=== PATIENT | male | born 1980 | race Caucasian/White ===

== ENCOUNTER 2021-10-18 19:43 | Inpatient (IN) ==
[2021-10-18 20:24] LABS: Basophils # 0.1 K/mcL (0.0-0.2); Basophils % 0.7 %; Eosinophils # 0.3 K/mcL (0.0-0.6); Eosinophils % 3.9 %; Hematocrit 44.7 % (37.5-50.1); Hemoglobin 15.3 g/dL (12.9-16.9); Immature Granulocytes % 0.3 % (0-4); Lymphocytes # 1.7 K/mcL (0.6-4.6); Lymphocytes % 22.2 %; Mean Corpuscular HGB Conc 34.2 g/dL (31.6-35.5); Mean Corpuscular Hemoglobin 32.1 pg (28.0-33.3); Mean Corpuscular Volume 93.9 fL (83.0-100.0); Mean Platelet Volume 9.8 fL (9.4-12.4); Monocytes # 0.4 K/mcL (0.0-1.3); Monocytes % 5.3 %; Neutrophils # 5.1 K/mcL (1.6-8.9); Platelet Count 251 K/mcL (140-400); Red Blood Count 4.76 M/mcL (4.19-5.50); Red Cell Distribution Width 12.4 % (11.5-14.5); Segmented Neutrophils % 67.6 %; White Blood Count 7.6 K/mcL (4.3-11.1)
[2021-10-18 20:46] LABS: Acetaminophen < 10 mcg/mL (10-20); BUN/Creatinine Ratio 17 (6-26); Blood Urea Nitrogen 18 mg/dL (6-20); Carbon Dioxide 25 mEq/L (23-29); Chloride 106 mEq/L (98-107); Chol/HDL Ratio 2.9 (0-4.9); Cholesterol 158 mg/dL (< 200); Ethanol < 10 mg/dL (Less than 10); Glucose 163 mg/dL (70-105); HDL Cholesterol 54 mg/dL (40-59); LDL Cholesterol,Calculated 76 mg/dL (< 100); Osmolality,Calculated 291 (280-300); Potassium 4.1 mEq/L (3.5-5.1); Salicylate < 2.5 mg/dL (15.0-30.0); Sodium 138 mEq/L (136-145); Triglycerides 140 mg/dL (< 150)
[2021-10-18 21:18] LABS: Estimated Average Glucose 108 mg/dl; Hemoglobin A1C 5.4 %
[2021-10-18 21:20] LABS: Amphetamine Screen,Urine Negative ng/mL (Cutoff=1000); Barbiturate Screen,Urine Negative ng/mL (Cutoff=200); Benzodiazepines Screen,Urine Negative ng/mL (Cutoff=200); Cannabinoid Screen,Urine Negative ng/mL (Cutoff = 50); Cocaine Screen,Urine Negative ng/mL (Cutoff= 300); Opiate Screen,Urine Negative ng/mL (Cutoff=300); Phencyclidine Screen,Urine Negative ng/mL (Cutoff=25)
[2021-10-18 21:26] LABS: Bacteria,Urine Few per hpf (None-Few); Mucus,Urine Few per lpf (None-Few); RBC,Urine 0-3 per hpf (0-3)
[2021-10-18 21:50] LABS: Bilirubin,Urine Negative (Negative); Blood,Urine Negative (Negative); Clarity,Urine Clear (Clear); Color,Urine Yellow (Yellow); Glucose,Urine (UA) Normal (Normal); Ketones,Urine Trace mg/dL (Negative); Leukocyte Esterase,Urine Moderate (Negative); Nitrite,Urine Negative (Negative); Protein,Urine 30 mg/dL (Neg-Trace); Specific Gravity,Urine > 1.030 (1.010-1.025)
[2021-10-19 01:26] LABS: Influenza A PCR Negative (Negative); Influenza B PCR Negative (Negative); Resp. Syncytial Virus PCR Negative (Negative)
[2021-10-19 01:32] LABS: SARS-CoV-2 by PCR (In House) Negative (Negative)
[2021-10-19] MEDS ORDERED: *HR* LORazepam 2 MG/ML VIAL IM PRN (02:07)
[2021-10-19] MEDS ORDERED: hydrOXYzine pamoate 25 MG CAPSULE PO PRN (02:07)
[2021-10-19] MEDS ORDERED: Acetaminophen 325 MG TABLET PO PRN (02:07)
[2021-10-19] MEDS ORDERED: *HR* LORazepam 1 MG TABLET PO PRN (02:07)
[2021-10-19] MEDS ORDERED: Haloperidol Lactate 5 MG/ML VIAL IM PRN (02:07)
[2021-10-19] MEDS ORDERED: haloperidoL 5 MG TABLET PO PRN (02:07)
[2021-10-19] MEDS ORDERED: MOM Conc 10 ML UD.LIQ PO PRN (08:14)
[2021-10-19] MEDS ORDERED: Mag Hydrox/Al Hydrox/Simeth 30 ML UDC PO PRN (08:14)
[2021-10-19] MEDS: Propranolol LA (24 HR) 80 MG CAP.SA.24H PO SCH (11:41)
[2021-10-19] MEDS: lisinopriL 10 MG TABLET PO SCH (11:41)
[2021-10-19] MEDS: risperiDONE 1 MG TABLET PO SCH (21:55)
[2021-10-19] MEDS: lamoTRIgine 100 MG TABLET PO SCH (21:55)
[2021-10-19] MEDS: traZODone 50 MG TABLET PO PRN (21:57)
[2021-10-20] MEDS ORDERED: Ondansetron ODT 4 MG TAB.RAPDIS SL PRN (08:50)
[2021-10-20] MEDS: SUMAtriptan succinate 50 MG TABLET PO PRN ×2 (09:42→13:04)
[2021-10-20] MEDS: Propranolol LA (24 HR) 80 MG CAP.SA.24H PO SCH (10:00)
[2021-10-20] MEDS: lisinopriL 10 MG TABLET PO SCH (10:00)
[2021-10-20] MEDS: lamoTRIgine 100 MG TABLET PO SCH (22:04)
[2021-10-20] MEDS: traZODone 50 MG TABLET PO PRN (22:04)
[2021-10-20] MEDS: risperiDONE 1 MG TABLET PO SCH (22:04)
[2021-10-21] MEDS: lisinopriL 10 MG TABLET PO SCH (08:51)
[2021-10-21] MEDS: Propranolol LA (24 HR) 80 MG CAP.SA.24H PO SCH (08:51)
[2021-10-21] MEDS ORDERED: Ibuprofen 600 MG TABLET PO PRN (11:22)
[2021-10-21] MEDS ORDERED: Acetaminophen/Aspirin/Caffeine TABLET PO PRN (11:22)
[2021-10-21 20:38] VITALS: O2SAT 97
[2021-10-21] MEDS: lamoTRIgine 100 MG TABLET PO SCH (21:19)
[2021-10-21] MEDS: risperiDONE 1 MG TABLET PO SCH (21:21)
[2021-10-21] MEDS: traZODone 50 MG TABLET PO PRN (22:57)
[2021-10-22] MEDS: lisinopriL 10 MG TABLET PO SCH (08:05)
[2021-10-22] MEDS: Propranolol LA (24 HR) 80 MG CAP.SA.24H PO SCH (08:05)
[2021-10-22 09:46] VITALS: BP 124/76; PULSE 52; TEMP 98.2
== END 2021-10-22 15:15 | disposition home or self-care (01) | DRG 885 ==
LOC: EMEROOARM 19:43 → 1ANU 10-19 02:04
PROVIDERS: ADMIT Psychiatry & Neurology Psychiatry; ATTEND Psychiatry & Neurology Psychiatry